=== PATIENT | female | born 1985 | race Caucasian/White ===

== ENCOUNTER 2018-09-30 16:54 | Observation (INO) | payer BC ==
[2018-09-30] MEDS ORDERED: Lactated Ringers 1,000 ML IV ONE (17:30)
[2018-09-30] MEDS ORDERED: Sodium Chloride 0.9% 10 ML Syringe FLUSH PRN ×2 (18:16→18:37)
--- NOTE | 2018-10-01 07:58 | HP ---
ADMISSION DATE: 09/30/2018 H&P AND TRANSFER SUMMARY: CHIEF COMPLAINT: Bleeding. HISTORY OF PRESENT ILLNESS: This is a 32-year-old female, G5, P3, at 33 weeks and 6 days. She came in because of painless vaginal bleeding. This started suddenly about 45 minutes ago. She has no pain or contractions, neither does she have any urinary symptoms. Denies any trauma. She has a history of marginal placenta previa. PAST MEDICAL HISTORY: No other active medical problems. REVIEW OF SYSTEMS: All other systems are negative. PAST OBSTETRIC HISTORY: Blood type, rhesus negative. She has had 3 previous deliveries vaginally. MEDICATIONS: None. PHYSICAL EXAMINATION: GENERAL: She is afebrile and normotensive. MENTAL STATUS: Normal affect. ABDOMEN: Normal. EXTREMITIES: No edema. CARDIOVASCULAR: Normal. RESPIRATORY SYSTEM: Normal. LABORATORY DATA: None. I reviewed records from last week and also the [place] chart. IMPRESSION: My final impression is placenta previa with active bleeding or symptomatic placenta previa. PLAN: I called up to [place], spoke with the [employer] inbound sales consultant. Decision was made to transfer for monitoring. An IV access was obtained, LR bolus was given. The patient will be transferred by ambulance. I spent 35 minutes in critical care and taking care of the patient, arranging transportation and transfer. /[id number] AYSE/RYDER MTDDelisa
== END 2018-09-30 18:10 ==
LOC: FB.OB 16:54
PROVIDERS: ADMIT Family Medicine; ATTEND Family Medicine
DX: O44.13 Complete placenta previa with hemorrhage, third trimester (principal); Z3A.33 33 weeks gestation of pregnancy
CPT/HCPCS: 96360; 99211; G0378; J7120